=== PATIENT | male | born 2000 | race American Indian/Alaskan Native ===

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

== ENCOUNTER 2022-05-16 12:25 | Emergency (ER) | payer SELFPAY ==
[2022-05-16 12:31] VITALS: BP 142/84
== END 2022-05-16 16:35 | disposition left against medical advice (07) ==
LOC: ED 12:25
DX: S99.921A Unspecified injury of right foot, initial encounter (principal); Z53.21 Procedure and treatment not carried out due to patient leaving prior to being seen by health care provider; X58.XXXA Exposure to other specified factors, initial encounter; Y93.89 Activity, other specified; Y92.89 Other specified places as the place of occurrence of the external cause; Y99.8 Other external cause status